=== PATIENT | female | born 1970 | race Caucasian/White ===

== ENCOUNTER 2020-08-23 12:38 | Day surgery (SDC) | payer MEDICAID ==
[2020-08-16 15:01] LABS: BASOPHILS % (AUTO) 0.5 % (0-1); EOSINOPHILS # (AUTO) 0.1 X10'3 (0-0.9); EOSINOPHILS % (AUTO) 1.6 % (0-6); LYMPHOCYTES # (AUTO) 1.7 X10'3 (1.1-4.8); LYMPHOCYTES % (AUTO) 23.1 % (21-51); MEAN CORPUSCULAR HEMOGLOBIN 29.8 PG (27.0-31.0); MEAN CORPUSCULAR HGB CONC 33.5 g/dL (33.0-36.5); MEAN CORPUSCULAR VOLUME 88.9 FL (78-98); MEAN PLATELET VOLUME 6.7 FL (7.4-10.4); MONOCYTES # (AUTO) 0.5 X10'3 (0-0.9); MONOCYTES % (AUTO) 7.1 % (2-12); NEUTROPHILS % (AUTO) 67.7 % (42-75); PRE OP HEMATOCRIT 39.5 % (35.0-45.0); PRE OP HEMOGLOBIN 13.2 g/dL (12.0-16.0); PRE OP PLATELET COUNT 422 X10'3 (140-440); RED BLOOD COUNT 4.44 X10'6 (4.20-5.60); RED CELL DISTRIBUTION WIDTH 13.6 % (11.5-14.5)
[2020-08-16 15:20] LABS: ALBUMIN 3.9 G/DL (3.4-5.0); ALBUMIN/GLOBULIN RATIO 1.1 (1.1-1.5); ALKALINE PHOSPHATASE 83 IU/L (46-116); BLOOD UREA NITROGEN 27 MG/DL (7-18); CALCIUM 8.9 MG/DL (8.5-10.1); CHLORIDE 104 MMOL/L (99-107); CREATININE 1.59 MG/DL (0.40-0.90); PRE OP ALT 18 U/L (30-65); PRE OP ANION GAP 11 (8-16); PRE OP AST 11 U/L (10-37); PRE OP BILIRUB, TOTAL 0.6 MG/DL (0.0-1.0); PRE OP GLUCOSE 87 MG/DL (70-104); PRE OP POTASSIUM 3.6 MMOL/L (3.4-5.1); PRE OP SODIUM 143 MMOL/L (135-145); TOTAL CARBON DIOXIDE 28.1 MMOL/L (24-32); TOTAL PROTEIN 7.5 G/DL (6.4-8.2); eGFR 34 ML/MIN
[2020-08-23] VITALS (9 sets, daily range): BP systolic 114–134; BP diastolic 66–89
[~2020-08-23] VITALS: Ht 157.5 cm; Wt 92.5 kg
[~2020-08-23 12:38] MED LIST: CYCL-1 PO; DULO30CA52 PO; FAMO40TA7 PO; MELO-102 PO; NAPR-56 PO; clindamycin-Cleocin 900mg/D5W 50 ML IV ONE; famotidine 20mg tablet PO ONE; ringers solution, lacted 1,000 ML IV SCH; scopolamine 1.5mg patch.TD72 (72-hour patch) TD ONE; vancomycin 1,500 MG in NS 300ml IV soln IV ONE
[2020-08-23] MEDS ORDERED: scopolamine 1mg/72 hr patch TD ONE (13:30)
[2020-08-23] MEDS ORDERED: BUPIVAcaine/PF 2.5 mg/ml (0.25%) 30ml vial ONE ×2 (13:39→13:51)
[2020-08-23] MEDS ORDERED: triamcinolone acetonide 40mg/ml inj ONE ×2 (13:39→13:51)
--- NOTE | 2020-08-23 14:06 | NUR ---
SCOPE PATCH WAS SCANNED AND ADMISISTERED ORDERED HOWEVER MED DIDNT SEEM TO SAVE IN MEDI TECH.
[2020-08-23] MEDS ORDERED: sevoflurane 250ml liquid IH ONE (16:12)
[2020-08-23] MEDS ORDERED: cefazolin/dext.iso 2,000MG/50 ML BAG IV ONE (16:12)
[2020-08-23] MEDS ORDERED: fentaNYL/PF 50MCG/1 ML 2ML syringe ONE (16:12)
[2020-08-23] MEDS ORDERED: dexamethasone sod phosphate 10mg/ml inj ONE (16:12)
[2020-08-23] MEDS ORDERED: midazolam 1 mg/ML 2ml injection ONE (16:13)
[2020-08-23] MEDS ORDERED: propofol inj 20 ML IV ONE (16:14)
[2020-08-23] MEDS ORDERED: LIDOcaine 2% (20mg/ml) 5ml vial ONE (16:14)
[2020-08-23] MEDS ORDERED: meperidine/PF 25mg/ml syringe ONE (16:37)
[2020-08-23] MEDS ORDERED: ondansetron/PF 4mg/2ml inj ONE (16:49)
--- NOTE | 2020-08-23 17:20 | NUR ---
Received from OR via [facility] IN STABLE CONDITION , accompanied by Anesthesiologist and DRY CLEANING COUNTER CLERK report given by Andres. Addendum: 08/23/20 at 1746 by Alie Mary RN Amended: Links added.
[2020-08-23] MEDS ORDERED: albuterol 2.5 MG/3 ML nebule NEB ONE (17:25)
--- NOTE | 2020-08-23 18:40 | NUR ---
PATIENT DISCHARGED FROM PACU IN STABLE CONDITION AFTER VERBAL AND WRITTEN DISCHARGE INSTRUCTIONS GIVEN. PATIENT GAVE VERBAL UNDERSTANDING OF INSTRUCTIONS GIVEN. PATIENT LEFT FACILITY VIA WHEELCHAIR WITH RN. Addendum: 08/23/20 at 1901 by Alie Mary RN Amended: Links added.
== END 2020-08-23 18:40 | disposition home or self-care (01) ==
LOC: PAS 12:38
PROVIDERS: ATTEND Orthopaedic Surgery
DX: S83.231A Complex tear of medial meniscus, current injury, right knee, initial encounter (principal); S83.271A Complex tear of lateral meniscus, current injury, right knee, initial encounter; M17.11 Unilateral primary osteoarthritis, right knee; M94.261 Chondromalacia, right knee; Z20.822 Contact with and (suspected) exposure to COVID-19; E66.01 Morbid (severe) obesity due to excess calories; Z68.37 Body mass index [BMI] 37.0-37.9, adult; K21.9 Gastro-esophageal reflux disease without esophagitis; F41.9 Anxiety disorder, unspecified; J45.909 Unspecified asthma, uncomplicated; Z79.899 Other long term (current) drug therapy; Z90.710 Acquired absence of both cervix and uterus; Z90.49 Acquired absence of other specified parts of digestive tract; Z98.890 Other specified postprocedural states; Z88.5 Allergy status to narcotic agent; Z88.0 Allergy status to penicillin; Z79.01 Long term (current) use of anticoagulants; X58.XXXA Exposure to other specified factors, initial encounter; Y93.89 Activity, other specified; Y92.89 Other specified places as the place of occurrence of the external cause; Y99.8 Other external cause status
CPT/HCPCS: 29873; 29879; 29880; 36415; 80053; 85025; 85610; 85730; 93005; 94640; 94664; 94760; J1100; J2001; J2175; J2250; J2405; J2704; J3010; J3301; J3370; J3490; J7040; U0003; U0005; A4215; A4618; A6250; A6449; A7000; J7120